=== PATIENT | female | born 1980 | race Caucasian/White ===

== ENCOUNTER 2017-03-13 08:00 | Outpatient (CLI) | payer OTHER | END 2017-03-13 08:01 | disposition home or self-care (01) | LOC: LAB.R 08:00 | PROVIDERS: ATTEND Registered Nurse | DX: Z30.430 Encounter for insertion of intrauterine contraceptive device (principal) | CPT/HCPCS: 87491; 87591 ==

== ENCOUNTER 2017-09-23 08:00 | Outpatient (CLI) | payer OTHER | END 2017-09-23 08:01 | disposition home or self-care (01) | LOC: LAB.R 08:00 | PROVIDERS: ATTEND Registered Nurse | DX: R10.2 Pelvic and perineal pain (principal) | CPT/HCPCS: 87491; 87591 ==